=== PATIENT | female | born 1930 | race African-American/Black ===

== ENCOUNTER → 2017-05-16 | Outpatient (CLI) | payer MEDICARE | END | disposition home or self-care (01) | LOC: MAMMO 08:05 | PROVIDERS: ATTEND Internal Medicine Pulmonary Disease | DX: Z12.31 Encounter for screening mammogram for malignant neoplasm of breast (principal) | CPT/HCPCS: G0202 ==

== ENCOUNTER 2019-03-04 19:10 | Inpatient (IN) | payer MEDICARE, OTHER ==
[~2019-03-04] VITALS: Ht 167.6 cm; Wt 83.9 kg
[~2019-03-04 19:10] MED LIST: ALPR-341 PO
[2019-03-04 19:30] VITALS: BP 121/60
[2019-03-04] MEDS ORDERED: ALPRAZOLAM 0.5 MG TABLET PO PRN (23:15)
[2019-03-04] MEDS ORDERED: ACETAMINOPHEN 325MG TABLET PO PRN (23:15)
[2019-03-04] MEDS ORDERED: TRAMADOL 50MG TABLET PO PRN (23:15)
[2019-03-04] MEDS ORDERED: DOCUSATE SODIUM 100MG CAPSULE PO PRN (23:15)
[2019-03-05] MEDS: ENOXAPARIN 40MG/0.4ML SYR SUBCUT SCH ×2 (00:04→21:22)
[2019-03-05] MEDS: PSEUDOEPHEDRINE HCL 30MG TABLET PO SCH ×4 (00:04→17:00)
[2019-03-05] MEDS: FAMOTIDINE 20MG TABLET PO SCH ×3 (00:04→21:22)
[2019-03-05 08:00] VITALS: BP 133/62
[2019-03-05] MEDS: AMLODIPINE 5MG TABLET PO SCH (09:00)
[2019-03-05] MEDS: LOSARTAN POTASSIUM 50 MG TABLET PO SCH (09:00)
[2019-03-05] MEDS: HYDROCHLOROTHIAZIDE 12.5MG CAPSULE PO SCH (09:35)
[2019-03-05] MEDS: ASPIRIN 81MG TABLET PO SCH (09:35)
[2019-03-05] MEDS: CLOPIDOGREL 75MG TABLET PO SCH (09:35)
[2019-03-05] MEDS: MULTIVITAMINS,THER W-MINERALS TABLET PO SCH (09:35)
[2019-03-05] MEDS: AZITHROMYCIN 500 MG TABLET PO SCH (11:08)
[2019-03-05] MEDS: FLUTICASONE PROPIONATE 50MCG/SPRAY BOTTLE BOTHNSTRLS SCH ×2 (11:09)
[2019-03-05] MEDS: DOCUSATE SODIUM 100MG CAPSULE PO SCH ×2 (13:56→16:59)
[2019-03-05] MEDS: BISACODYL 5MG TABLET PO PRN (16:58)
[2019-03-05] MEDS: MONTELUKAST SODIUM 10MG TABLET PO SCH (16:59)
[2019-03-05 20:03] VITALS: BP 121/70
[2019-03-06] MEDS ORDERED: NA PHOS,M-B/NA PHOS,DI-BA ENEMA 118ML PR NR (06:00)
[2019-03-06 07:33] VITALS: BP 112/71
[2019-03-06] MEDS: ASPIRIN 81MG TABLET PO SCH (08:25)
[2019-03-06] MEDS: FAMOTIDINE 20MG TABLET PO SCH ×2 (08:25→20:59)
[2019-03-06] MEDS: MULTIVITAMINS,THER W-MINERALS TABLET PO SCH (08:25)
[2019-03-06] MEDS: DOCUSATE SODIUM 100MG CAPSULE PO SCH ×2 (08:25→16:24)
[2019-03-06] MEDS: FLUTICASONE PROPIONATE 50MCG/SPRAY BOTTLE BOTHNSTRLS SCH (08:25)
[2019-03-06] MEDS: CLOPIDOGREL 75MG TABLET PO SCH (08:25)
[2019-03-06] MEDS: HYDROCHLOROTHIAZIDE 12.5MG CAPSULE PO SCH (08:25)
[2019-03-06] MEDS: AZITHROMYCIN 500 MG TABLET PO SCH (08:25)
[2019-03-06] MEDS: LOSARTAN POTASSIUM 50 MG TABLET PO SCH (08:26)
[2019-03-06] MEDS: AMLODIPINE 5MG TABLET PO SCH (08:26)
[2019-03-06] MEDS: MONTELUKAST SODIUM 10MG TABLET PO SCH (16:24)
[2019-03-06 20:00] VITALS: BP 135/62
[2019-03-06] MEDS: ENOXAPARIN 40MG/0.4ML SYR SUBCUT SCH (20:59)
[2019-03-07 07:43] VITALS: BP 138/63
[2019-03-07] MEDS: LOSARTAN POTASSIUM 50 MG TABLET PO SCH (08:32)
[2019-03-07] MEDS: BISACODYL 5MG TABLET PO PRN (08:33)
[2019-03-07] MEDS: DOCUSATE SODIUM 100MG CAPSULE PO SCH ×2 (08:33→16:26)
[2019-03-07] MEDS: HYDROCHLOROTHIAZIDE 12.5MG CAPSULE PO SCH (08:33)
[2019-03-07] MEDS: CLOPIDOGREL 75MG TABLET PO SCH (08:33)
[2019-03-07] MEDS: FAMOTIDINE 20MG TABLET PO SCH ×2 (08:33→20:40)
[2019-03-07] MEDS: AMLODIPINE 5MG TABLET PO SCH (08:33)
[2019-03-07] MEDS: ASPIRIN 81MG TABLET PO SCH (08:33)
[2019-03-07] MEDS: MULTIVITAMINS,THER W-MINERALS TABLET PO SCH (08:33)
[2019-03-07] MEDS: FLUTICASONE PROPIONATE 50MCG/SPRAY BOTTLE BOTHNSTRLS SCH (08:36)
[2019-03-07] MEDS ORDERED: NA PHOS,M-B/NA PHOS,DI-BA ENEMA 118ML PR NR (12:30)
[2019-03-07] MEDS: MONTELUKAST SODIUM 10MG TABLET PO SCH (16:25)
[2019-03-07 20:00] VITALS: BP 147/81
[2019-03-07] MEDS: ENOXAPARIN 40MG/0.4ML SYR SUBCUT SCH (20:40)
[2019-03-08 08:00] VITALS: BP 141/63
[2019-03-08] MEDS: MULTIVITAMINS,THER W-MINERALS TABLET PO SCH (08:22)
[2019-03-08] MEDS: DOCUSATE SODIUM 100MG CAPSULE PO SCH ×2 (08:22→16:32)
[2019-03-08] MEDS: CLOPIDOGREL 75MG TABLET PO SCH (08:23)
[2019-03-08] MEDS: ASPIRIN 81MG TABLET PO SCH (08:23)
[2019-03-08] MEDS: LOSARTAN POTASSIUM 50 MG TABLET PO SCH (08:23)
[2019-03-08] MEDS: HYDROCHLOROTHIAZIDE 12.5MG CAPSULE PO SCH (08:23)
[2019-03-08] MEDS: FAMOTIDINE 20MG TABLET PO SCH ×2 (08:23→20:24)
[2019-03-08] MEDS: AMLODIPINE 5MG TABLET PO SCH (08:23)
[2019-03-08] MEDS: MONTELUKAST SODIUM 10MG TABLET PO SCH (16:32)
[2019-03-08 20:00] VITALS: BP 137/74
[2019-03-08] MEDS: ENOXAPARIN 40MG/0.4ML SYR SUBCUT SCH (20:25)
[2019-03-09] MEDS: BISACODYL 5MG TABLET PO PRN (00:11)
[2019-03-09 07:00] VITALS: BP 141/69
[2019-03-09 07:03] LABS: BASOPHILS % 0.5 % (0.0-2.0); EOSINOPHILS % 1.9 % (0.0-5.0); HEMATOCRIT. 33.1 % (36.0-48.0); LYMPHOCYTES % 21.6 % (20.0-50.0); MEAN CORPUSCULAR HEMOGLOBIN 27.8 pg (28.0-32.0); MEAN CORPUSCULAR VOLUME 83.9 fL (81.0-99.0); PLATELET 336 x1000/uL (130-400); RED BLOOD CELL COUNT 3.95 mill/uL (4.2-5.4); RED CELL DISTRIBUTION WIDTH 16.1 % (11.6-14.6)
[2019-03-09 07:15] LABS: CHLORIDE 109 mEq/L (98-107)
[2019-03-09 07:29] LABS: HDL CHOLESTEROL 42 mg/dL (40-59); LDL CHOLESTEROL 73 mg/dL (5-100)
[2019-03-09] MEDS: CLOPIDOGREL 75MG TABLET PO SCH (08:57)
[2019-03-09] MEDS: DOCUSATE SODIUM 100MG CAPSULE PO SCH ×2 (08:58→17:44)
[2019-03-09] MEDS: HYDROCHLOROTHIAZIDE 12.5MG CAPSULE PO SCH (08:58)
[2019-03-09] MEDS: LOSARTAN POTASSIUM 50 MG TABLET PO SCH (08:58)
[2019-03-09] MEDS: ASPIRIN 81MG TABLET PO SCH (08:58)
[2019-03-09] MEDS: FAMOTIDINE 20MG TABLET PO SCH ×2 (08:58→20:50)
[2019-03-09] MEDS: AMLODIPINE 5MG TABLET PO SCH (08:58)
[2019-03-09] MEDS: MULTIVITAMINS,THER W-MINERALS TABLET PO SCH (08:58)
[2019-03-09] MEDS: MONTELUKAST SODIUM 10MG TABLET PO SCH (17:44)
[2019-03-09 20:00] VITALS: BP 133/64
[2019-03-09] MEDS: ENOXAPARIN 40MG/0.4ML SYR SUBCUT SCH (20:50)
[2019-03-10 08:00] VITALS: BP 145/65
[2019-03-10] MEDS: CLOPIDOGREL 75MG TABLET PO SCH (08:41)
[2019-03-10] MEDS: DOCUSATE SODIUM 100MG CAPSULE PO SCH ×2 (08:41→16:10)
[2019-03-10] MEDS: ASPIRIN 81MG TABLET PO SCH (08:41)
[2019-03-10] MEDS: LOSARTAN POTASSIUM 50 MG TABLET PO SCH (08:41)
[2019-03-10] MEDS: HYDROCHLOROTHIAZIDE 12.5MG CAPSULE PO SCH (08:41)
[2019-03-10] MEDS: AMLODIPINE 5MG TABLET PO SCH (08:41)
[2019-03-10] MEDS: ONDANSETRON HCL 4MG TABLET PO PRN (08:41)
[2019-03-10] MEDS: FAMOTIDINE 20MG TABLET PO SCH ×2 (08:42→20:55)
[2019-03-10] MEDS: MULTIVITAMINS,THER W-MINERALS TABLET PO SCH (08:42)
[2019-03-10] MEDS: MONTELUKAST SODIUM 10MG TABLET PO SCH (16:10)
[2019-03-10 20:00] VITALS: BP 130/82
[2019-03-10] MEDS: ENOXAPARIN 40MG/0.4ML SYR SUBCUT SCH (20:56)
[2019-03-11 08:08] VITALS: BP 131/61
[2019-03-11] MEDS: AMLODIPINE 5MG TABLET PO SCH (08:35)
[2019-03-11] MEDS: ASPIRIN 81MG TABLET PO SCH (08:35)
[2019-03-11] MEDS: FAMOTIDINE 20MG TABLET PO SCH ×2 (08:35→21:58)
[2019-03-11] MEDS: LOSARTAN POTASSIUM 50 MG TABLET PO SCH (08:36)
[2019-03-11] MEDS: HYDROCHLOROTHIAZIDE 12.5MG CAPSULE PO SCH (08:36)
[2019-03-11] MEDS: DOCUSATE SODIUM 100MG CAPSULE PO SCH ×2 (08:36→16:34)
[2019-03-11] MEDS: MULTIVITAMINS,THER W-MINERALS TABLET PO SCH (08:36)
[2019-03-11] MEDS: CLOPIDOGREL 75MG TABLET PO SCH (08:36)
[2019-03-11] MEDS: MONTELUKAST SODIUM 10MG TABLET PO SCH (16:34)
[2019-03-11] MEDS: BISACODYL 5MG TABLET PO PRN (17:39)
[2019-03-11 20:00] VITALS: BP 147/70
[2019-03-11] MEDS: ENOXAPARIN 40MG/0.4ML SYR SUBCUT SCH (21:58)
[2019-03-12] MEDS ORDERED: NA PHOS,M-B/NA PHOS,DI-BA ENEMA 118ML PR ONE (04:00)
[2019-03-12] MEDS: ONDANSETRON HCL 4MG TABLET PO PRN (07:55)
[2019-03-12 08:00] VITALS: BP 128/72
[2019-03-12] MEDS: HYDROCHLOROTHIAZIDE 12.5MG CAPSULE PO SCH (09:26)
[2019-03-12] MEDS: ASPIRIN 81MG TABLET PO SCH (09:27)
[2019-03-12] MEDS: LOSARTAN POTASSIUM 50 MG TABLET PO SCH (09:27)
[2019-03-12] MEDS: FAMOTIDINE 20MG TABLET PO SCH ×2 (09:27→20:28)
[2019-03-12] MEDS: DOCUSATE SODIUM 100MG CAPSULE PO SCH ×2 (09:27→16:36)
[2019-03-12] MEDS: CLOPIDOGREL 75MG TABLET PO SCH (09:27)
[2019-03-12] MEDS: MULTIVITAMINS,THER W-MINERALS TABLET PO SCH (09:27)
[2019-03-12] MEDS: AMLODIPINE 5MG TABLET PO SCH (09:27)
[2019-03-12] MEDS: MONTELUKAST SODIUM 10MG TABLET PO SCH (16:36)
[2019-03-12] MEDS ORDERED: MAGNESIUM HYDROXIDE 400MG/5ML 30ML UDC PO PRN (17:45)
[2019-03-12] MEDS ORDERED: MAGNESIUM HYDROXIDE 400MG/5ML 30ML UDC PO NR (17:45)
[2019-03-12 20:00] VITALS: BP 125/54
[2019-03-12] MEDS: ENOXAPARIN 40MG/0.4ML SYR SUBCUT SCH (20:28)
[2019-03-13 08:00] VITALS: BP 135/60
[2019-03-13] MEDS: LOSARTAN POTASSIUM 50 MG TABLET PO SCH (09:01)
[2019-03-13] MEDS: MULTIVITAMINS,THER W-MINERALS TABLET PO SCH (09:01)
[2019-03-13] MEDS: ASPIRIN 81MG TABLET PO SCH (09:01)
[2019-03-13] MEDS: FAMOTIDINE 20MG TABLET PO SCH ×2 (09:01→21:05)
[2019-03-13] MEDS: HYDROCHLOROTHIAZIDE 12.5MG CAPSULE PO SCH (09:01)
[2019-03-13] MEDS: CLOPIDOGREL 75MG TABLET PO SCH (09:02)
[2019-03-13] MEDS: BISACODYL 5MG TABLET PO PRN (09:02)
[2019-03-13] MEDS: DOCUSATE SODIUM 100MG CAPSULE PO SCH ×2 (09:02→21:05)
[2019-03-13] MEDS: AMLODIPINE 5MG TABLET PO SCH (09:03)
[2019-03-13] MEDS ORDERED: NA PHOS,M-B/NA PHOS,DI-BA ENEMA 118ML PR PRN (15:00)
[2019-03-13] MEDS ORDERED: ACETAMINOPHEN 325MG TABLET PO PRN (17:30)
[2019-03-13 20:00] VITALS: BP 101/65
[2019-03-13] MEDS: MONTELUKAST SODIUM 10MG TABLET PO SCH (21:05)
[2019-03-13] MEDS: ENOXAPARIN 40MG/0.4ML SYR SUBCUT SCH (21:06)
[2019-03-14 07:47] VITALS: BP 139/63
[2019-03-14] MEDS: AMLODIPINE 5MG TABLET PO SCH (08:48)
[2019-03-14] MEDS: FAMOTIDINE 20MG TABLET PO SCH ×2 (08:48→21:04)
[2019-03-14] MEDS: DOCUSATE SODIUM 100MG CAPSULE PO SCH ×2 (08:48→16:03)
[2019-03-14] MEDS: LOSARTAN POTASSIUM 50 MG TABLET PO SCH (08:48)
[2019-03-14] MEDS: HYDROCHLOROTHIAZIDE 12.5MG CAPSULE PO SCH (08:48)
[2019-03-14] MEDS: ASPIRIN 81MG TABLET PO SCH (08:48)
[2019-03-14] MEDS: MULTIVITAMINS,THER W-MINERALS TABLET PO SCH (08:48)
[2019-03-14] MEDS: CLOPIDOGREL 75MG TABLET PO SCH (08:49)
[2019-03-14] MEDS: MONTELUKAST SODIUM 10MG TABLET PO SCH (16:03)
[2019-03-14 20:00] VITALS: BP 126/62
[2019-03-14] MEDS: ENOXAPARIN 40MG/0.4ML SYR SUBCUT SCH (21:05)
[2019-03-15] MEDS: ONDANSETRON HCL 4MG TABLET PO PRN (04:42)
[2019-03-15 07:56] VITALS: BP 143/75
[2019-03-15] MEDS: DOCUSATE SODIUM 100MG CAPSULE PO SCH (08:31)
[2019-03-15] MEDS: AMLODIPINE 5MG TABLET PO SCH (08:31)
[2019-03-15] MEDS: HYDROCHLOROTHIAZIDE 12.5MG CAPSULE PO SCH (08:31)
[2019-03-15] MEDS: MULTIVITAMINS,THER W-MINERALS TABLET PO SCH (08:31)
[2019-03-15] MEDS: FAMOTIDINE 20MG TABLET PO SCH (08:31)
[2019-03-15] MEDS: CLOPIDOGREL 75MG TABLET PO SCH (08:31)
[2019-03-15] MEDS: LOSARTAN POTASSIUM 50 MG TABLET PO SCH (08:31)
[2019-03-15] MEDS: ASPIRIN 81MG TABLET PO SCH (08:31)
[2019-03-15 10:15] VITALS: BP 134/75
== END 2019-03-15 12:43 | disposition home health service (06) | DRG 66 ==
PROVIDERS: ADMIT Psychiatry & Neurology Neurology; ATTEND Internal Medicine Pulmonary Disease
DX: I63.531 Cerebral infarction due to unspecified occlusion or stenosis of right posterior cerebral artery (principal); E78.5 Hyperlipidemia, unspecified; E86.0 Dehydration; F41.9 Anxiety disorder, unspecified; I10 Essential (primary) hypertension; J01.90 Acute sinusitis, unspecified; J30.1 Allergic rhinitis due to pollen; K21.9 Gastro-esophageal reflux disease without esophagitis; K59.00 Constipation, unspecified; M48.00 Spinal stenosis, site unspecified; M19.90 Unspecified osteoarthritis, unspecified site; Z82.79 Family history of other congenital malformations, deformations and chromosomal abnormalities; Z96.653 Presence of artificial knee joint, bilateral; R26.9 Unspecified abnormalities of gait and mobility
CPT/HCPCS: 36415; 80048; 80061; 92523; 93970; 97110; 97116; 97162; 97167; 97530; 97535; J1650; Q0162